=== PATIENT | male | born 2000 | race Caucasian/White ===

== ENCOUNTER 2019-03-19 11:26 | Emergency (ER) | payer OTHER ==
[~2019-03-19] VITALS: Ht 175.3 cm; Wt 80.1 kg
[2019-03-19] MEDS ORDERED: ALBUTEROL SULFATE 2.5 MG/0.5 ML INH NEB SOLN NEB ONE (12:15)
--- NOTE | 2019-03-19 12:43 | REP ---
Clinical: Cough and wheezing . Comparison: None . Technique: PA and lateral. Findings: The mediastinum and cardiac silhouette are normal. The lung angela demonstrate increased coarsened markings which may reflect bronchitis. No focal consolidation, effusion, or pneumothorax. The skeletal structures are intact and normal. Impression: Possible bronchitis. No focal consolidation. Electronically Signed by Krishan Rivera MD 03/19/2019 12:34 P
[2019-03-19 12:57] LABS: INFLUENZA A AMPLIFICATION NEGATIVE (NEGATIVE); INFLUENZA B AMPLIFICATION NEGATIVE (NEGATIVE)
[2019-03-19] MEDS ORDERED: PROA1AER2 INH (13:37)
[2019-03-19 13:46] VITALS: BP 141/76
== END 2019-03-19 13:47 | disposition home or self-care (01) ==
LOC: M ED 11:26
DX: J40 Bronchitis, not specified as acute or chronic (principal); F17.210 Nicotine dependence, cigarettes, uncomplicated

== ENCOUNTER 2019-04-06 12:06 | Emergency (ER) | payer OTHER ==
[~2019-04-06] VITALS: Ht 175.3 cm; Wt 0.3 kg
[~2019-04-06 12:06] MED LIST: PROA1AER2 INH
--- NOTE | 2019-04-06 13:18 | REP ---
CT brain: 04/06/2019. Indication: Head trauma. Comparison: None. Technique: Unenhanced axial CT images of the brain were obtained from skull base to vertex. Findings: There is no acute intracranial hemorrhage, acute cortical infarction, mass effect, hydrocephalus or acute calvarial fracture. Impression: No acute intracranial process. Electronically Signed by Reggie Jain DO 04/06/2019 01:09 P
[2019-04-06] MEDS ORDERED: DERMABOND TOPICAL SKIN ADHESIVE TOP ONE (13:30)
[2019-04-06] MEDS ORDERED: ACETAMINOPHEN 500 MG TAB PO ONE (13:45)
[2019-04-06 15:11] VITALS: BP 135/82
== END 2019-04-06 15:15 | disposition home or self-care (01) ==
LOC: M ED 12:06 → EDBD 12:06 → M ED 15:15
DX: S01.01XA Laceration without foreign body of scalp, initial encounter (principal); W22.8XXA Striking against or struck by other objects, initial encounter; Y92.89 Other specified places as the place of occurrence of the external cause; Y99.0 Civilian activity done for income or pay